=== PATIENT | female | born 1995 | race Caucasian/White ===

== ENCOUNTER 2017-11-28 21:46 | Emergency (ER) | payer OTHER ==
--- NOTE | 2017-11-28 22:16 | RAD ---
RIGHT INDEX FINGER THREE VIEWS: 11/28/17 HISTORY: Right index finger pain. FINDINGS/IMPRESSION: No fracture, dislocation or bony destruction is seen. POS: [facility]
[2017-11-28] MEDS ORDERED: Ketorolac Tromethamine 30 MG/ML VIAL ONE (22:20)
[2017-11-28 22:29] LABS: #Basophils 0.2 thou/uL (0.0-0.2); #Eosinphils 0.2 thou/uL (0.0-0.7); #Lymphocytes 4.1 thou/uL (1.20-3.40); #Monocytes 1.2 thou/uL (0.11-0.59); #Neutrophils 6.2 thou/uL (1.40-6.50); %Basophils 1.9 % (0.0-1.0); %Eosinophils 1.7 % (0.0-10.0); %Lymphocytes 34.2 % (21.0-51.0); %Monocytes 10.4 % (0.0-10.0); %Neutrophils 51.8 % (42.0-75.0); Hemoglobin 13.8 g/dL (12.0-16.0); Mean Corpuscular HGB CONC 35.4 g/dL (32.0-36.0); Mean Corpuscular Hemoglobin 30.5 pg (27.0-31.0); Mean Corpuscular Volume 86.3 fl (81.0-99.0); Mean Platelet Volume 7.7 fL (7.4-10.4); Platelet Count 241 thou/uL (130-400); RBC Distribution Width 9.9 % (11.5-14.5); Red Blood Cell (RBC) Count 4.54 mill/uL (4.20-5.40); White Blood Cell (WBC) Count 11.9 thou/uL (4.8-10.8)
[2017-11-28 22:42] LABS: Anion Gap 13 mmol/L (10-20); BUN (Urea Nitrogen) 17 mg/dL (7.0-18.7); Calc. Creatinine Clearance 0 mL/min (70-130); Calcium 9.8 mg/dL (7.8-10.44); Carbon Dioxide 26 mmol/L (22-29); Chloride 106 mmol/L (98-107); Estimated GFR-MDRD 74; Glucose 82 mg/dL (70-105); Potassium 3.7 mmol/L (3.5-5.1); Sodium 141 mmol/L (136-145)
== END 2017-11-28 22:55 | disposition home or self-care (01) ==
LOC: SCSER 21:46
DX: M79.89 Other specified soft tissue disorders (principal); F41.9 Anxiety disorder, unspecified; F32.9 Major depressive disorder, single episode, unspecified; F17.210 Nicotine dependence, cigarettes, uncomplicated; M35.7 Hypermobility syndrome; Z79.899 Other long term (current) drug therapy
CPT/HCPCS: 80048; 85025; 85652; 86140; 96374; J1885

== ENCOUNTER 2017-11-29 16:54 | Inpatient (IN) | payer OTHER ==
[~2017-11-29 16:54] MED LIST: Glycopyrrolate 0.2 MG/ML 5 ML SYRINGE ONE; Ketorolac Tromethamine 30 MG/ML VIAL ONE; Lidocaine 1% PF 5 ML VIAL ONE; Ondansetron HCl/PF 4 MG/2 ML Vial ONE; PHENYLEPHRINE-NS 100 MCG/ML 10 ML SYRINGE ONE; PROPOFOL 200 MG/20 ML VIAL ONE
[2017-11-29 18:30] LABS: BHCG - Serum Negative (NEGATIVE); Pregs Control Background? CLEAR/WHITE (CLR/WHITE); Pregs Control Bar Appear? YES (CONTROL BAR)
[2017-11-29] MEDS ORDERED: Gentamicin 80 MG/2 ML VIAL ONE (18:35)
[2017-11-29] MEDS ORDERED: Bacitracin Zinc Ointment 30 gm TUBE ONE (18:35)
[2017-11-29] MEDS ORDERED: Bupivacaine PF 0.5% 30 ML VIAL ONE (18:35)
[2017-11-29] MEDS ORDERED: Midazolam HCl 2 mg/2 ml Vial ONE (18:54)
[2017-11-29] MEDS ORDERED: Fentanyl 100 MCG/2 ML VIAL ONE ×4 (19:14→21:31)
[2017-11-29] MEDS ORDERED: Ketorolac Tromethamine 30 MG/ML VIAL ONE (20:44)
[2017-11-29] MEDS ORDERED: Ondansetron HCl/PF 4 MG/2 ML Vial IVP PRN (20:47)
[2017-11-29] MEDS ORDERED: Promethazine HCl 25 MG/ML VIAL IM PRN ×2 (20:47→22:26)
[2017-11-29] MEDS ORDERED: Promethazine HCl 25 MG/ML VIAL SLOW IVP PRN (20:47)
[2017-11-29 22:09] VITALS: BMI 21.2
[2017-11-29] MEDS ORDERED: Ketorolac Tromethamine 30 MG/ML VIAL IM SCH (22:30)
[2017-11-29] MEDS: Vancomycin HCl 750 MG in Sodium Chloride 0.9% 250 ML 250 ML IVPB SCH (22:45)
[2017-11-30] MEDS: Dextrose 5 % And 0.9 % NaCl 1,000 ML IV SCH ×2 (02:16→19:25)
[2017-11-30] MEDS: Gentamicin Sulfate 80 MG in Premix Bag 1 BAG IVPB SCH ×3 (05:15→21:25)
[2017-11-30] MEDS: Ketorolac Tromethamine 30 MG/ML VIAL IVP SCH ×3 (05:15→21:25)
[2017-11-30 05:44] LABS: #Basophils 0.1 thou/uL (0.0-0.2); #Eosinphils 0.3 thou/uL (0.0-0.7); #Lymphocytes 3.6 thou/uL (1.20-3.40); #Monocytes 0.8 thou/uL (0.11-0.59); #Neutrophils 4.1 thou/uL (1.40-6.50); %Basophils 0.7 % (0.0-1.0); %Monocytes 9.2 % (0.0-10.0); %Neutrophils 46.1 % (42.0-75.0); Hemoglobin 11.7 g/dL (12.0-16.0); Mean Corpuscular HGB CONC 33.7 g/dL (32.0-36.0); Mean Corpuscular Hemoglobin 31.3 pg (27.0-31.0); Mean Corpuscular Volume 92.8 fl (81.0-99.0); Mean Platelet Volume 7.5 fL (7.4-10.4); Platelet Count 155 thou/uL (130-400); RBC Distribution Width 10.6 % (11.5-14.5); Red Blood Cell (RBC) Count 3.74 mill/uL (4.20-5.40); White Blood Cell (WBC) Count 8.9 thou/uL (4.8-10.8)
[2017-11-30] MEDS ORDERED: [UNRECOGNIZED DRUG - OTHER] SLOW IVP SCH (06:00)
[2017-11-30] MEDS ORDERED: STERILE WATER SLOW IVP SCH (06:00)
[2017-11-30] MEDS ORDERED: SULBACTAM SLOW IVP SCH (06:00)
[2017-11-30] MEDS ORDERED: AMPICILLIN SLOW IVP SCH (06:00)
--- NOTE | 2017-11-30 07:24 | OP ---
DATE: 11/29/2017 PREOPERATIVE DIAGNOSES: Right index finger proximal phalangeal abscess to right index finger, flexor tendon sheath abscess. POSTOPERATIVE DIAGNOSES: Right index finger proximal phalangeal abscess to right index finger flexor tendon sheath abscess. FINDINGS: A very thick yellow fluid in the 2 areas as listed above, which is the approximately half of flexor tendon sheath, is placed between 3 and the A1 chauncey and the proximal phalangeal joint prop er. CULTURES SENT: 1. Viral culture to include HIV, influenza, other viruses from the proximal phalangeal joint and the tendon sheath. 2. Chocolate agar, rule out gonorrhea from both the joint and the tendon sheath and 2 cultures from the joint, aerobic, anaerobic, fungal, and mycobacterial, and 2 cultures from the tendon sheath, aero bic, anaerobic, fungal, and mycobacterial. PROCEDURES: 1. Arthrotomy with drainage of abscess, possible and/or joint. 2. Open tendon sheath irrigation and drainage. TOURNIQUET TIME: 20 minutes. BLOOD LOSS: Less than 10 mL. All wounds dressed left open with normal saline, soaked gauze and a sm all amount of packing. INDICATION: The patient reports that 5 days ago, she had a puncture wound just proximal to the dista l interphalangeal joint over the central portion of her index finger. Four days later, which was yes terday, she began to notice edema, swelling in the area. The patient also presented to the office to day with a white blood cell count of 11,000. She was counselled by Dr. Kinsey at bedside prior to procedure that she would probably have an infection, it may be early, and we will need to rule out un usual infectious such as a viral type and also possible gonorrhea. The patient is sexually active. DESCRIPTION OF PROCEDURE: After successful general LMA technique, the limb was prepped and draped. We then had a time out performed. Incision was outlined 1.5 cm level of A1 chauncey, 1.5 cm over the m iddle phalanx between the A2 and A3 chauncey and then one just between the A3 chauncey and A4 chauncey, the se were carried to skin and subcutaneous tissue. We then noticed the thick mucopurulent, but not yet purulent, yellow, darkened material fluid at the middle incision over the middle phalanx greater jimenez n the other two. We then took the appropriate cultures as listed above and sent it to the lab. This included a chocolate agar. Then, we irrigated this with 25 mL of tendon sheath irrigation first at the proximal incision approxi mately A1 chauncey, secondly at the middle incision. At all sites, there was a flow out of the incisio n open and distal to where the catheter was placed. A total of 50 mL was placed through the tendon s kelly and the tendon. We then turned attention to the dorsal aspect of the proximal phalangeal joint . Here, made a zigzag incision, slightly more radial than ulnar, and carried through the skin and rodriguez bcutaneous tissue, and then we opened the junction between the central flip and the intrinsics in the joint and we immediately saw another thick dark mucopurulent, this time almost gelatinous material e scaped, and we cultured this in the same way I cultured the fluid from the tendon sheath. Here, we u sed 200 mL of irrigation with a large 20 mL syringe and a 20-gauge catheter underneath the tendon in the joint to irrigate this area. We released the tourniquet and obtained hemostasis. The wounds wer e all dressed open, normal saline gauze soaked inside each wound, bulky dressing for the finger, and the patient left the operating room without evidence of anesthetic or operative complication. She wi ll be admitted for IV antibiotics and I told she and her relative and significant other that if this show any evidence at all of infection, we would leave her in hospital for at least 24 hours of IV ant ibiotics pending normal white blood cell count and pain control. We will also order tests in case th is is an unusual presentation of inflammatory tenosynovitis and arthritis.
[2017-11-30] MEDS: Vancomycin HCl 750 MG in Sodium Chloride 0.9% 250 ML 250 ML IVPB SCH ×2 (11:35→22:05)
[2017-11-30] MEDS: Fentanyl 100 MCG/2 ML VIAL SLOW IVP PRN ×4 (13:03→22:03)
[2017-11-30] MEDS ORDERED: Ondansetron HCl/PF 4 MG/2 ML Vial SLOW IVP PRN (15:17)
--- NOTE | 2017-11-30 18:10 | PDOC.PN ---
- Subjective Encounter Start Date: 11/30/17 Encounter Start Time: 17:50 Pt seen for management of medical comorbidities, including abdominal distention. Pt reports abdominal distention which started today. Not passing flatus. Reports vomiting once earlier today. - Objective MAR Reviewed: Yes Vital Signs & Weight: Vital Signs (12 hours) Temp Pulse Resp BP Pulse Ox 11/30/17 15:47 98.0 F 64 16 128/76 96 11/30/17 12:02 97.7 F 60 15 136/74 97 11/30/17 08:11 98.1 F 82 14 113/62 99 Weight Weight 120 lb Result Diagrams: 11/30/17 04:48 Phys Exam - Physical Examination Constitutional: NAD HEENT: moist MMs Neck: supple Respiratory: clear to auscultation bilateral Cardiovascular: RRR Gastrointestinal: soft bowel sounds absent Neurological: moves all 4 limbs Psychiatric: normal affect Dx/Plan (1) Abdominal distention Code(s): R14.0 - ABDOMINAL DISTENSION (GASEOUS) Status: Acute (2) Chronic pain Code(s): G89.29 - OTHER CHRONIC PAIN Status: Chronic (3) Gastroparesis Code(s): K31.84 - GASTROPARESIS Status: Chronic (4) Fibromyalgia Status: Chronic - Plan * . Pt had surgery under general sedation today. Followup on abdominal x-rays. Pain management per surgical service. Review of Systems - Review of Systems Respiratory: negative: Cough, Dry, Shortness of Breath, Hemoptysis, SOB with Excertion, Pleuritic Pain, Sputum, Wheezing Cardiovascular: negative: chest pain, palpitations, orthopnea, paroxysmal nocturnal dyspnea, edema, light headedness Gastrointestinal: Nausea, Vomiting, Constipation, Other (abdo distention) - Medications/Allergies Allergies/Adverse Reactions: Allergies Allergy/AdvReac Type Severity Reaction Status Date / Time amitriptyline Allergy Verified 04/01/17 17:10 codeine phosphate Allergy Verified 04/01/17 17:10 [From Tylenol-Codeine #3] duloxetine HCl Allergy Verified 04/01/17 17:10 [From Cymbalta] hydrocodone Allergy Verified 04/01/17 17:10 morphine Allergy Verified 04/01/17 17:10 Penicillins Allergy Verified 04/01/17 17:10 Medications: Current Medications Butorphanol Tartrate (Stadol) 2 mg SLOW IVP Q8H PRN PRN Reason: Pain Fentanyl (Sublimaze) 25 mcg SLOW IVP Q2H PRN PRN Reason: Moderate Pain (4-6) Last Admin: 11/30/17 15:58 Dose: 25 mcg Vancomycin HCl 750 mg/ Sodium (Chloride) 250 mls @ 250 mls/hr IVPB 1100,2300 [facility] Last Admin: 11/30/17 11:35 Dose: 250 mls Gentamicin Sulfate 80 mg/ (Device) 100 mls @ 200 mls/hr IVPB Q8HR [facility] Last Admin: 11/30/17 14:39 Dose: 100 mls Dextrose/Sodium Chloride (D5 0.9% Ns) 1,000 mls @ 100 mls/hr IV .Q10H [facility] Last Admin: 11/30/17 02:16 Dose: 1,000 mls Ketorolac Tromethamine (Toradol) 30 mg IVP Q8HR [facility] Stop: 12/05/17 06:01 Last Admin: 11/30/17 14:29 Dose: 30 mg Meperidine HCl (Demerol) 25 mg IM Q4H PRN PRN Reason: Severe Pain (7-10) Last Admin: 11/30/17 10:18 Dose: 25 mg Meperidine HCl (Demerol) 50 mg PO Q4H PRN PRN Reason: Pain Last Admin: 11/30/17 14:27 Dose: 50 mg Ondansetron HCl (Zofran) 4 mg SLOW IVP Q6H PRN PRN Reason: Nausea/Vomiting Promethazine HCl (Phenergan) 25 mg IM Q4H PRN PRN Reason: Severe Pain (7-10) Last Admin: 11/30/17 10:18 Dose: 25 mg Sodium Chloride (Flush - Normal Saline) 10 ml IVF Q12HR [facility] Last Admin: 11/30/17 09:20 Dose: Not Given Sodium Chloride (Flush - Normal Saline) 10 ml IVF PRN PRN PRN Reason: Saline Flush
--- NOTE | 2017-11-30 18:52 | RAD ---
ABDOMEN TWO VIEWS 11/30/17 HISTORY: Abdominal distention. FINDINGS/IMPRESSION: No free air or differential fluid levels are seen. the bowel gas pattern is unremarkable. There is fe bradford material in the colon. POS: [facility]
[2017-11-30 19:14] LABS: ALT (SGPT) 10 U/L (8-55); AST (SGOT) 19 U/L (5-34); Albumin 3.9 g/dL (3.5-5.0); Alkaline Phosphatase 34 U/L (40-150); Bilirubin, Direct 0.4 mg/dL (0.1-0.3); Bilirubin, Total 0.7 mg/dL (0.2-1.2); Lipase 28 U/L (8-78); Protein, Total 5.7 g/dL (6.0-8.3)
[2017-11-30] MEDS ORDERED: DOMPERIDONE 20 MG PO SCH (21:00)
[2017-11-30] MEDS ORDERED: lamoTRIgine 100 MG TAB PO SCH (21:00)
[2017-11-30] MEDS: Sodium Chloride 0.9% 1,000 ML IV SCH (22:12)
[2017-12-01] MEDS: Fentanyl 100 MCG/2 ML VIAL SLOW IVP PRN ×5 (03:23→18:59)
[2017-12-01] MEDS: Ketorolac Tromethamine 30 MG/ML VIAL IVP SCH ×2 (05:04→14:39)
[2017-12-01] MEDS: Gentamicin Sulfate 80 MG in Premix Bag 1 BAG IVPB SCH ×2 (05:04→14:45)
[2017-12-01] MEDS: Multivit, Therapeutic 1 TAB PO SCH ×2 (08:18→08:21)
[2017-12-01] MEDS: Sodium Chloride 0.9% 1,000 ML IV SCH (08:24)
[2017-12-01] MEDS ORDERED: Polyethylene Glycol 3350 17 GM Packet PO SCH (09:00)
[2017-12-01 09:19] LABS: Antinuclear AB Negative (Negative)
[2017-12-01] MEDS ORDERED: Bisacodyl 10 MG SUPP PR PRN (09:45)
[2017-12-01] MEDS ORDERED: Bisacodyl 5 MG TAB PO PRN (09:45)
[2017-12-01 10:10] LABS: Vancomycin, Trough 1.9 ug/mL
[2017-12-01] MEDS: Vancomycin HCl 750 MG in Sodium Chloride 0.9% 250 ML 250 ML IVPB SCH (11:08)
--- NOTE | 2017-12-01 11:49 | PDOC.PN ---
- Subjective Encounter Start Date: 12/01/17 Encounter Start Time: 08:20 Pt seen for followup re: abdo distention. Passed flatus. Constipated. - Objective MAR Reviewed: Yes Vital Signs & Weight: Vital Signs (12 hours) Temp Pulse Resp BP Pulse Ox 12/01/17 08:15 98.2 F 64 14 99 12/01/17 07:42 98.2 F 64 14 110/62 99 12/01/17 04:19 97.6 F 66 16 106/53 L 97 12/01/17 00:31 97.4 F L 62 15 108/57 L 99 Weight Weight 120 lb I&O: 11/30/17 12/01/17 12/02/17 06:59 06:59 06:59 Intake Total 1202 Balance 1202 Result Diagrams: 11/30/17 04:48 Phys Exam - Physical Examination Constitutional: NAD HEENT: moist MMs Neck: supple Respiratory: clear to auscultation bilateral Cardiovascular: RRR Gastrointestinal: soft, non-tender, positive bowel sounds Neurological: moves all 4 limbs Psychiatric: normal affect Dx/Plan (1) Abdominal distention Code(s): R14.0 - ABDOMINAL DISTENSION (GASEOUS) Status: Acute (2) Chronic pain Code(s): G89.29 - OTHER CHRONIC PAIN Status: Chronic (3) Gastroparesis Code(s): K31.84 - GASTROPARESIS Status: Chronic (4) Fibromyalgia Status: Chronic - Plan * . Miralax trial. Dulcolax PRN. Pt tolerating diet. Review of Systems - Review of Systems Respiratory: negative: Cough, Dry, Shortness of Breath, Hemoptysis, SOB with Excertion, Pleuritic Pain, Sputum, Wheezing Cardiovascular: negative: chest pain, palpitations, orthopnea, paroxysmal nocturnal dyspnea, edema, light headedness Gastrointestinal: Constipation. negative: Nausea, Vomiting, Abdominal Pain, Diarrhea, Melena, Hematochezia - Medications/Allergies Allergies/Adverse Reactions: Allergies Allergy/AdvReac Type Severity Reaction Status Date / Time amitriptyline Allergy Verified 04/01/17 17:10 codeine phosphate Allergy Verified 04/01/17 17:10 [From Tylenol-Codeine #3] duloxetine HCl Allergy Verified 04/01/17 17:10 [From Cymbalta] hydrocodone Allergy Verified 04/01/17 17:10 morphine Allergy Verified 04/01/17 17:10 Penicillins Allergy Verified 04/01/17 17:10 Medications: Current Medications Bisacodyl (Dulcolax) 10 mg PO DAILYPRN PRN PRN Reason: Constipation Last Admin: 12/01/17 11:12 Dose: 10 mg Bisacodyl (Dulcolax) 10 mg LA DAILYPRN PRN PRN Reason: Constipation Butorphanol Tartrate (Stadol) 2 mg SLOW IVP Q8H PRN PRN Reason: Pain Fentanyl (Sublimaze) 25 mcg SLOW IVP Q2H PRN PRN Reason: Moderate Pain (4-6) Last Admin: 12/01/17 08:18 Dose: 25 mcg Vancomycin HCl 750 mg/ Sodium (Chloride) 250 mls @ 250 mls/hr IVPB 1100,2300 [facility] Last Admin: 12/01/17 11:08 Dose: 250 mls Gentamicin Sulfate 80 mg/ (Device) 100 mls @ 200 mls/hr IVPB Q8HR [facility] Last Admin: 12/01/17 05:04 Dose: 100 mls Sodium Chloride (Normal Saline 0.9%) 1,000 mls @ 100 mls/hr IV .Q10H [facility] Last Admin: 12/01/17 08:24 Dose: Not Given Ketorolac Tromethamine (Toradol) 30 mg IVP Q8HR [facility] Stop: 12/05/17 06:01 Last Admin: 12/01/17 05:04 Dose: 30 mg Lamotrigine (Lamictal) 100 mg PO HS [facility] Last Admin: 11/30/17 20:47 Dose: 100 mg Meperidine HCl (Demerol) 25 mg IM Q4H PRN PRN Reason: Severe Pain (7-10) Last Admin: 11/30/17 10:18 Dose: 25 mg Meperidine HCl (Demerol) 50 mg PO Q4H PRN PRN Reason: Pain Last Admin: 12/01/17 09:38 Dose: 50 mg Multivitamins (Theragran) 1 tab PO DAILY [facility] Last Admin: 12/01/17 08:21 Dose: Not Given Non-Formulary Medication (Domperidone) 20 mg PO QID [facility] Ondansetron HCl (Zofran) 4 mg SLOW IVP Q6H PRN PRN Reason: Nausea/Vomiting Polyethylene Glycol (Miralax) 17 gm PO DAILY [facility] Last Admin: 12/01/17 10:00 Dose: 17 gm Promethazine HCl (Phenergan) 25 mg IM Q4H PRN PRN Reason: Severe Pain (7-10) Last Admin: 11/30/17 10:18 Dose: 25 mg Sodium Chloride (Flush - Normal Saline) 10 ml IVF Q12HR [facility] Last Admin: 12/01/17 08:24 Dose: Not Given Sodium Chloride (Flush - Normal Saline) 10 ml IVF PRN PRN PRN Reason: Saline Flush
[2017-12-01 16:26] VITALS: BP 105/60; TEMP 98.1
[2017-12-02 10:13] LABS: HIV-1 Quantitative, RNA PCR <20 copies/mL (.)
== END 2017-12-01 20:03 | disposition home or self-care (01) | DRG 501 ==
LOC: SDC 16:54 → OBSVTOIN 21:29 → SURG B 21:29
PROVIDERS: ADMIT Orthopaedic Surgery Hand Surgery; ATTEND Orthopaedic Surgery Hand Surgery
PROC: 0J9J0ZX Drainage of Right Hand Subcutaneous Tissue and Fascia, Open Approach, Diagnostic (ICD-10-PCS; principal; 2017-11-29)
PROC: 0L970ZX Drainage of Right Hand Tendon, Open Approach, Diagnostic (ICD-10-PCS; 2017-11-29)
PROC: 0R9W0ZX Drainage of Right Finger Phalangeal Joint, Open Approach, Diagnostic (ICD-10-PCS; 2017-11-29)
DX: M65.841 Other synovitis and tenosynovitis, right hand (principal); L02.511 Cutaneous abscess of right hand; K31.84 Gastroparesis; K56.7 Ileus, unspecified; F31.81 Bipolar II disorder; M79.7 Fibromyalgia; G89.29 Other chronic pain
CPT/HCPCS: 36415; 74019; 80048; 80076; 80202; 82150; 83690; 84703; 85025; 85652; 86038; 86140; 86430; 87070; 87081; 87205; 87536; 96374; A4216; J1580; J1885; J2001; J2175; J2250; J2405; J2550; J2704; J3010; J3370; J7042; J7050; S0020

== ENCOUNTER 2017-12-06 12:24 | Day surgery (SDC) | payer OTHER ==
[2017-12-06] MEDS ORDERED: Sodium Chloride 0.9% 10 ML ONE (13:34)
[2017-12-06] MEDS ORDERED: Bupivacaine PF 0.5% 30 ML VIAL ONE (13:34)
[2017-12-06] MEDS ORDERED: Bacitracin Zinc Ointment 30 gm TUBE ONE (13:34)
[2017-12-06] MEDS ORDERED: Thrombin 5000 UNITS/5 ML VIAL ONE (13:34)
[2017-12-06] MEDS ORDERED: Lidocaine 1% (PF) 30 ML VIAL ONE (13:34)
[2017-12-06] MEDS ORDERED: Fentanyl 100 MCG/2 ML VIAL ONE (13:35)
[2017-12-06] MEDS ORDERED: Ondansetron HCl/PF 4 MG/2 ML Vial ONE ×3 (13:36→14:37)
[2017-12-06] MEDS ORDERED: Midazolam HCl 2 mg/2 ml Vial ONE (14:12)
[2017-12-06] MEDS ORDERED: Dexamethasone 20 MG/5 ML VIAL ONE (14:37)
[2017-12-06] MEDS ORDERED: Succinylcholine Chloride 20 MG/ML 10 ml SYRINGE FS ONE (14:37)
[2017-12-06] MEDS ORDERED: Ketorolac Tromethamine 30 MG/ML VIAL ONE ×2 (14:37→15:21)
[2017-12-06] MEDS ORDERED: Propofol 200 MG/20 ML VIAL ONE (14:37)
[2017-12-06] MEDS ORDERED: Lidocaine 1% PF 5 ML VIAL ONE (14:37)
[2017-12-06] MEDS ORDERED: Metoclopramide HCl 10 MG/2 ML VIAL ONE (14:37)
[2017-12-06] MEDS ORDERED: ePHEDrine/0.9% NaCl/PF SYRINGE 50 mg/10 ml ONE (14:37)
--- NOTE | 2017-12-07 02:11 | OP ---
DATE OF PROCEDURE: 12/06/2017 PREOPERATIVE DIAGNOSIS: Right index finger multiple open wounds totalling approximately 7 cm includi ng the palm. POSTOPERATIVE DIAGNOSIS: Right index finger multiple open wounds totalling approximately 7 cm includ ing the palm. FINDINGS: No gross infection or necrosis. PROCEDURE PERFORMED: 1. Debridement of wound, intermediate layer, technique. A. Scissor techniue. B. Use of tenotomy scissors, Adson's, and a curette. 2. No gross infection found. No necrosis. Depth was down to the fascia fat including dermis and ep idermis only. 3. Wound closure, [id number]. INDICATIONS: The patient returns now 6 days after incision and drainage of what proved to be either a sterile abscess or inflammatory problem involving tendon sheath in her joint. Her pain greatly dec reased. No gross infection, so wound closure was indicated. ANESTHESIA: General LMA technique augmented by 50 mL of 0.5% Marcaine metacarpophalangeal block. No epinephrine. DESCRIPTION OF PROCEDURE: After successful general LMA technique, the limb was prepped and draped. She was given Toradol. The wound was inspected, time out was done appropriately. We then used the d ebridement technique as listed above. We irrigated the wounds, each of the 4 wounds with 250 mL of normal saline with antibiotics inside. We closed the wound in individual layers with interrupted suture. No gap formation seen with full ex tension and passive flexion. She had excellent circulation and color. Bulky dressing was applied wi th a finger tube gauze, well padded, and she left the operating room without evidence anesthetic or o perative complication.
== END 2017-12-06 16:40 | disposition home or self-care (01) ==
LOC: SDC 12:24
PROVIDERS: ATTEND Orthopaedic Surgery Hand Surgery
PROC: 0JBJ0ZZ Excision of Right Hand Subcutaneous Tissue and Fascia, Open Approach (ICD-10-PCS; principal; 2017-12-06)
DX: S61.200A Unspecified open wound of right index finger without damage to nail, initial encounter (principal); S61.401A Unspecified open wound of right hand, initial encounter; Z88.0 Allergy status to penicillin; Z88.5 Allergy status to narcotic agent; Z88.8 Allergy status to other drugs, medicaments and biological substances
CPT/HCPCS: A4216; J1100; J1885; J2001; J2250; J2405; J2704; J2765; J3010; J3370; J3490; S0020

== ENCOUNTER 2018-11-15 12:03 | Emergency (ER) | payer OTHER ==
[2018-11-15] MEDS ORDERED: Ondansetron PF 4 MG/2 ML Vial ONE ×2 (12:20→13:11)
[2018-11-15 12:36] LABS: #Eosinphils 0.1 thou/uL (0.0-0.7); #Lymphocytes 1.2 thou/uL (1.20-3.40); #Monocytes 0.9 thou/uL (0.11-0.59); #Neutrophils 6.4 thou/uL (1.40-6.50); %Basophils 0.3 % (0.0-1.0); %Eosinophils 0.8 % (0.0-10.0); %Lymphocytes 14.3 % (21.0-51.0); %Monocytes 10.6 % (0.0-10.0); %Neutrophils 74.1 % (42.0-75.0); Mean Corpuscular HGB CONC 33.9 g/dL (32.0-36.0); Mean Corpuscular Hemoglobin 30.3 pg (27.0-31.0); Mean Corpuscular Volume 89.2 fL (78.0-98.0); Mean Platelet Volume 7.3 fL (7.4-10.4); Platelet Count 275 thou/uL (130-400); RBC Distribution Width 10.4 % (11.5-14.5); White Blood Cell (WBC) Count 8.6 thou/uL (4.8-10.8)
[2018-11-15 13:02] LABS: BHCG - Serum Negative (NEGATIVE); Pregs Control Background? CLEAR/WHITE (CLR/WHITE); Pregs Control Bar Appear? YES (CONTROL BAR)
[2018-11-15 13:12] LABS: ALT (SGPT) 13 U/L (8-55); AST (SGOT) 18 U/L (5-34); Albumin 4.9 g/dL (3.5-5.0); Alkaline Phosphatase 54 U/L (40-150); Anion Gap 14 mmol/L (10-20); BUN (Urea Nitrogen) 18 mg/dL (7.0-18.7); Bilirubin, Total 0.8 mg/dL (0.2-1.2); Calc. Creatinine Clearance 0 mL/min (70-130); Calcium 9.7 mg/dL (7.8-10.44); Carbon Dioxide 25 mmol/L (22-29); Chloride 101 mmol/L (98-107); Estimated GFR-MDRD 67; Globulin 2.9 g/dL (2.4-3.5); Glucose 106 mg/dL (70-105); Lipase 13 U/L (8-78); Potassium 3.9 mmol/L (3.5-5.1); Protein, Total 7.8 g/dL (6.0-8.3); Sodium 136 mmol/L (136-145)
--- NOTE | 2018-11-15 14:55 | ULT ---
RIGHT UPPER QUADRANT ULTRASOUND: Date: 11-15-18 Provided Clinical History: Abdominal pain. FINDINGS: The visualized portions of the pancreas and IVC appear normal. Liver demonstrates no mass or intrahep atic biliary ductal dilatation. The common duct is not dilated. Gallbladder demonstrates no stones, w all thickening, or pericholecystic fluid. Right kidney demonstrates no hydronephrosis or mass. IMPRESSION: Unremarkable right upper quadrant ultrasound. POS: [facility]
[2018-11-15] MEDS ORDERED: Mag-Al 1200 mg/1200 mg/30 ML UDCUP ONE (14:56)
[2018-11-15] MEDS ORDERED: Lidocaine Viscous Sol 2% 15 ml UD Cup ONE (14:56)
[2018-11-15 15:32] LABS: Bilirubin Small (Negative); Blood, Urine Small (Negative); Clarity CLEAR (Clear); Glucose, Urine (Dipstick) Negative (Negative); Leukocyte Trace (Negative); Nitrite Negative (Negative); Protein, Urine (Dipstick) Trace mg/dL (Neg-Trace); Specific Gravity, Urine 1.032 (1.002-1.036); Urobilinogen 0.2 mg/dL (0.2-1.0)
[2018-11-15 15:37] LABS: Bacteria/HPF None Seen HPF (None Seen); Pathc Cast-AUWi Flag 1.74 (0-2.49); RBC/HPF 0-3 HPF (0-3); WBC/HPF 0-3 HPF (0-3)
[2018-11-15 15:54] LABS: Hyaline Casts/LPF 0-3 HYALINE CAST LPF (0-3 Hyaline)
[2018-11-15] MEDS ORDERED: Ketorolac Tromethamine 30 MG/ML VIAL ONE (16:25)
== END 2018-11-15 16:01 | disposition home or self-care (01) ==
LOC: ERS 12:03
DX: R10.11 Right upper quadrant pain (principal); R19.7 Diarrhea, unspecified; R11.10 Vomiting, unspecified; F32.9 Major depressive disorder, single episode, unspecified; F17.210 Nicotine dependence, cigarettes, uncomplicated; F41.9 Anxiety disorder, unspecified
CPT/HCPCS: 76705; 80053; 81003; 81015; 83690; 84703; 85025; 96361; 96372; 96374; 96375; 96376; J1885; J2405

== ENCOUNTER 2018-12-15 01:57 | Emergency (ER) | payer OTHER ==
[2018-12-15] MEDS ORDERED: Ketorolac Tromethamine 30 MG/ML VIAL ONE (02:26)
[2018-12-15] MEDS ORDERED: Famotidine/PF 20 mg/2ml Vial ONE (02:26)
[2018-12-15] MEDS ORDERED: Ondansetron PF 4 MG/2 ML Vial ONE (02:26)
[2018-12-15 02:35] LABS: BHCG - Serum Negative (NEGATIVE); Pregs Control Background? CLEAR/WHITE (CLR/WHITE); Pregs Control Bar Appear? YES (CONTROL BAR)
[2018-12-15 02:36] LABS: #Basophils 0.1 thou/uL (0.0-0.2); #Eosinphils 0.2 thou/uL (0.0-0.7); #Lymphocytes 3.8 thou/uL (1.20-3.40); #Monocytes 0.2 thou/uL (0.11-0.59); #Neutrophils 15.3 thou/uL (1.40-6.50); %Basophils 0.7 % (0.0-1.0); %Eosinophils 1.1 % (0.0-10.0); %Lymphocytes 19.5 % (21.0-51.0); %Monocytes 1.2 % (0.0-10.0); %Neutrophils 77.5 % (42.0-75.0); Hemoglobin 15.8 g/dL (12.0-16.0); Mean Corpuscular HGB CONC 34.9 g/dL (32.0-36.0); Mean Corpuscular Hemoglobin 30.9 pg (27.0-31.0); Mean Corpuscular Volume 88.4 fL (78.0-98.0); Mean Platelet Volume 7.5 fL (7.4-10.4); Platelet Count 281 thou/uL (130-400); RBC Distribution Width 10.9 % (11.5-14.5); Red Blood Cell (RBC) Count 5.13 mill/uL (4.20-5.40); White Blood Cell (WBC) Count 19.7 thou/uL (4.8-10.8)
[2018-12-15 02:43] LABS: ALT (SGPT) 34 U/L (8-55); AST (SGOT) 69 U/L (5-34); Albumin 4.4 g/dL (3.5-5.0); Alkaline Phosphatase 46 U/L (40-150); Anion Gap 18 mmol/L (10-20); BUN (Urea Nitrogen) 17 mg/dL (7.0-18.7); Bilirubin, Total 0.5 mg/dL (0.2-1.2); Calc. Creatinine Clearance 0 mL/min (70-130); Calcium 9.6 mg/dL (7.8-10.44); Carbon Dioxide 25 mmol/L (22-29); Chloride 104 mmol/L (98-107); Estimated GFR-MDRD 64; Globulin 2.4 g/dL (2.4-3.5); Glucose 149 mg/dL (70-105); Lipase 36 U/L (8-78); Potassium 3.6 mmol/L (3.5-5.1); Protein, Total 6.8 g/dL (6.0-8.3); Sodium 143 mmol/L (136-145)
[2018-12-15] MEDS ORDERED: Acetaminophen 500 MG TAB ONE (03:00)
[2018-12-15] MEDS ORDERED: Dicyclomine 20 MG TAB ONE (03:54)
[2018-12-15] MEDS ORDERED: Mag-Al Plus 1200 MG/1200 MG/120 MG/30 ML UDCUP ONE (03:55)
[2018-12-15] MEDS ORDERED: Lidocaine Viscous Sol 2% 15 ml UD Cup ONE ×2 (03:55→03:56)
--- NOTE | 2018-12-15 09:06 | RAD ---
PORTABLE CHEST 1 VIEW: DATE: 12/15/2018. TIME: 2:49 a.m. HISTORY: Chest pain. FINDINGS: The heart size is normal. The lungs are expanded and clear. The bony thorax is unremarkable. IMPRESSION: Normal exam. POS: [facility]
--- NOTE | 2018-12-15 09:10 | ULT ---
PRELIMINARY REPORT/[facility]/EMERGENTY AFTER-HOURS PROCEDURE US Abdomen Limited, Right Upper Quadrant EXAM DATE/TIME: 12/15/2018 3:12 AM CLINICAL HISTORY: 23 years old, female; Pain; Other: Upper abd pain, n/v TECHNIQUE: Real-time ultrasound of the abdomen with image documentation. Examination was focused on the right up per quadrant. COMPARISON: No relevant prior studies available. FINDINGS: Liver: No acute findings. No mass. Gallbladder: Limited visualization. The gallbladder is contracted. Therefore difficult to evaluate. Positive Lewis's sign. Common bile duct: Unremarkable. Pancreas: Visualized pancreas is unremarkable. Right kidney: No acute findings. No mass. No hydronephrosis. IMPRESSION: The gallbladder is contracted. Positive Lewis's sign. No acute findings. Thank you for allowing us to participate in the care of your patient. Dictated and Authenticated by: Kingston Garcia MD 12/15/2018 4:15 AM Central Time ([place] & [place]) FINAL REPORT RIGHT UPPER QUADRANT ULTRASOUND: I agree with the preliminary report given by Dr. Garcia of [facility]. POS: [facility]
== END 2018-12-15 04:29 | disposition home or self-care (01) ==
LOC: SCSER 01:57
DX: R10.13 Epigastric pain (principal); R11.2 Nausea with vomiting, unspecified; R07.9 Chest pain, unspecified; F41.9 Anxiety disorder, unspecified; F32.9 Major depressive disorder, single episode, unspecified; F17.210 Nicotine dependence, cigarettes, uncomplicated
CPT/HCPCS: 71045; 76705; 80053; 83690; 83735; 84484; 84703; 85025; 86850; 86900; 86901; 93005; 96361; 96374; 96375; J1885; J2405; S0028

== ENCOUNTER 2019-06-06 19:40 | Emergency (ER) | payer OTHER ==
[2019-06-06] MEDS ORDERED: HYDROcodone/Acetaminophen 5/325 mg Tablet ONE (19:55)
[2019-06-06] MEDS ORDERED: diphenhydrAMINE 25 MG CAP ONE (19:55)
--- NOTE | 2019-06-06 20:07 | RAD ---
EXAM: XR Shoulder Rt 3 View STANDARD PROVIDED CLINICAL HISTORY: Pain FINDINGS: There is no evidence for fracture or other acute osseous abnormality. Alignment appears anatomic. Vesta nt spaces appear preserved. IMPRESSION: No evidence for an acute osseous abnormality. If there is persistent clinical concern, conservative m anagement and follow-up imaging advised.
== END 2019-06-06 20:26 | disposition home or self-care (01) ==
LOC: SCSER 19:40
DX: S49.91XA Unspecified injury of right shoulder and upper arm, initial encounter (principal); F31.9 Bipolar disorder, unspecified; K31.84 Gastroparesis; F17.210 Nicotine dependence, cigarettes, uncomplicated; Z79.899 Other long term (current) drug therapy; W17.89XA Other fall from one level to another, initial encounter
CPT/HCPCS: Q0163

== ENCOUNTER 2020-03-16 18:51 | Outpatient (CLI) | payer BC ==
--- NOTE | 2020-03-16 19:37 | RAD ---
PA AND LATERAL CHEST: Indication: Shortness of breath. Negative Covid test on Monday. Comparison: 12-15-18 FINDINGS: The lungs appear clear. No infiltrate identified. Heart and mediastinum appear normal. IMPRESSION: No evidence of acute infiltrate. POS: [facility]
== END 2020-03-16 18:52 | disposition home or self-care (01) ==
LOC: SCSRAD 18:51
PROVIDERS: ATTEND Family Medicine
DX: R06.02 Shortness of breath (principal)
CPT/HCPCS: 71046

== ENCOUNTER 2020-04-07 21:24 | Emergency (ER) | payer BC ==
[~2020-04-07 21:24] MED LIST changes: -Glycopyrrolate 0.2 MG/ML 5 ML SYRINGE ONE; +Iopamidol 370 76% 50 ML VIAL FS ONE; +Iopamidol-370 76% 500 ML 1 ML ONE; -Ketorolac Tromethamine 30 MG/ML VIAL ONE; -Lidocaine 1% PF 5 ML VIAL ONE; -Ondansetron HCl/PF 4 MG/2 ML Vial ONE; -PHENYLEPHRINE-NS 100 MCG/ML 10 ML SYRINGE ONE; -PROPOFOL 200 MG/20 ML VIAL ONE
[2020-04-07] MEDS ORDERED: Ketorolac Tromethamine 30 MG/ML VIAL ONE (22:30)
[2020-04-07 22:39] LABS: Bilirubin Negative (Negative); Blood, Urine Negative (Negative); Clarity Clear (Clear); Glucose, Urine (Dipstick) Normal (Negative); Leukocyte Negative Leu/uL (Negative); Nitrite Negative (Negative); Protein, Urine (Dipstick) Negative (Neg-Trace); Urobilinogen Normal mg/dL (Less than 2)
[2020-04-07 22:48] LABS: #Basophils 0.1 thou/uL (0.0-0.2); #Eosinphils 0.1 thou/uL (0.0-0.7); #Lymphocytes 2.6 thou/uL (1.20-3.40); #Monocytes 0.9 thou/uL (0.11-0.59); #Neutrophils 9.9 thou/uL (1.40-6.50); %Basophils 0.6 % (0.0-1.0); %Eosinophils 0.4 % (0.0-10.0); %Lymphocytes 19.4 % (21.0-51.0); %Monocytes 6.6 % (0.0-10.0); %Neutrophils 73.1 % (42.0-75.0); Hemoglobin 14.8 g/dL (12.0-16.0); Mean Corpuscular HGB CONC 33.1 g/dL (32.0-36.0); Mean Corpuscular Hemoglobin 30.7 pg (27.0-31.0); Mean Corpuscular Volume 92.6 fL (78.0-98.0); Mean Platelet Volume 7.9 fL (7.4-10.4); Platelet Count 247 thou/uL (130-400); RBC Distribution Width 11.1 % (11.5-14.5); Red Blood Cell (RBC) Count 4.83 mill/uL (4.20-5.40); White Blood Cell (WBC) Count 13.5 thou/uL (4.8-10.8)
[2020-04-07 22:56] LABS: BHCG - Serum Negative (NEGATIVE); Pregs Control Background? CLEAR/WHITE (CLR/WHITE); Pregs Control Bar Appear? YES (CONTROL BAR)
[2020-04-07 23:12] LABS: ALT (SGPT) 10 U/L (8-55); AST (SGOT) 16 U/L (5-34); Albumin 4.7 g/dL (3.5-5.0); Alkaline Phosphatase 43 U/L (40-110); Anion Gap 13 mmol/L (10-20); BUN (Urea Nitrogen) 14 mg/dL (7.0-18.7); Bilirubin, Total 0.5 mg/dL (0.2-1.2); Calc. Creatinine Clearance 0 mL/min (70-130); Calcium 9.5 mg/dL (7.8-10.44); Carbon Dioxide 28 mmol/L (22-29); Chloride 104 mmol/L (98-107); Estimated GFR-MDRD 79; Globulin 2.7 g/dL (2.4-3.5); Glucose 91 mg/dL (70-105); Potassium 3.5 mmol/L (3.5-5.1); Protein, Total 7.4 g/dL (6.0-8.3); Sodium 141 mmol/L (136-145)
[2020-04-08] MEDS ORDERED: Ondansetron PF 4 MG/2 ML Vial ONE (01:08)
--- NOTE | 2020-04-08 08:14 | CT ---
PRELIMINARY REPORT/[facility]/EMERGENCY AFTER HOURS PROCEDURE EXAM: CT Abdomen and Pelvis with Intravenous Contrast CLINICAL HISTORY: Pt presents for RLQ abd pain and vomiting starting this AM. Denies fever, diarrhea, or urinary sympto ms. Exacerbated by palpation and movement. Took ibuprofen [employer] with moderate improvement of pain. TECHNIQUE: Axial computed tomography images of the abdomen and pelvis with intravenous contrast. CONTRAST: With; ISOVUE & ISOVUE COMPARISON: CT\SR - CT ABDOMEN PELVIS W CON - 04/07/2017 11:42 AM CDT FINDINGS: LUNG BASES: No basilar airspace consolidation or pleural effusion. LIVER: Unremarkable. GALLBLADDER AND BILE DUCTS: Unremarkable. No calcified stone. No ductal dilation. PANCREAS: Unremarkable. SPLEEN: Unremarkable. ADRENAL GLANDS: Unremarkable. KIDNEYS, URETERS, AND BLADDER: Unremarkable. No hydronephrosis or nephrolithiasis. No ureteral or bladder calculi. STOMACH AND BOWEL: No obstruction. No wall thickening. No CT evidence of colitis or acute diverticulitis. APPENDIX: No CT evidence for appendicitis. The appendix is normal in diameter, and contrast tracks into the lumen. PERITONEUM: No free fluid. No free air. REPRODUCTIVE: There is a tampon in the vagina. VASCULATURE: No aortic aneurysm. BONES: No fracture or suspicious osseous abnormality. ABDOMINAL WALL AND SOFT TISSUES: Unremarkable. IMPRESSION: No acute intra-abdominal or pelvic abnormality. ELECTRONICALLY SIGNED BY: Akin Bundy MD April 08, 2020 12:50:50 AM CDT This report is intended for review by the ordering physician only, in accordance of law. If you recei ve this report in error, please call [facility] at [phone]. FINAL REPORT EMERGENT AFTER HOURS CT OF THE ABDOMEN AND PELVIS: FINDINGS/IMPRESSION: I agree with the findings and impression given in the preliminary report per [facility] physici an. No evidence of acute intraabdominal/pelvic abnormality. POS: [facility]
== END 2020-04-08 01:23 | disposition home or self-care (01) ==
LOC: ERS 21:24
DX: R10.31 Right lower quadrant pain (principal); R11.2 Nausea with vomiting, unspecified; F31.9 Bipolar disorder, unspecified; F17.210 Nicotine dependence, cigarettes, uncomplicated; Z79.899 Other long term (current) drug therapy
CPT/HCPCS: 74177; 80053; 81003; 84703; 85025; 96361; 96374; 96375; J1885; J2405; Q9967

== ENCOUNTER 2021-09-27 12:12 | Outpatient (CLI) | payer BC | END 2021-09-27 12:13 | disposition home or self-care (01) | LOC: BICRAD 12:12 | PROVIDERS: ATTEND Physician Assistant | DX: M54.50 Low back pain, unspecified (principal); M53.3 Sacrococcygeal disorders, not elsewhere classified | CPT/HCPCS: 72100; 72220 ==

== ENCOUNTER 2022-04-11 10:55 | Outpatient (CLI) | payer BC | END 2022-04-11 10:56 | disposition home or self-care (01) | LOC: DTY/OP 10:55 | PROVIDERS: ATTEND Physician Assistant Medical | DX: K31.84 Gastroparesis (principal); R63.4 Abnormal weight loss | CPT/HCPCS: 97802 ==

== ENCOUNTER 2023-02-15 11:05 | Outpatient (CLI) | payer BC | END 2023-02-15 11:06 | disposition home or self-care (01) | LOC: MRI 11:05 | PROVIDERS: ATTEND Podiatrist Foot & Ankle Surgery | DX: M72.2 Plantar fascial fibromatosis (principal) ==

== ENCOUNTER 2023-02-22 08:37 | Outpatient (CLI) | payer BC ==
[2023-02-22 09:10] LABS: BHCG - Serum Negative (NEGATIVE); Pregs Control Background? CLEAR/WHITE (CLR/WHITE); Pregs Control Bar Appear? YES (CONTROL BAR)
[2023-02-22] MEDS ORDERED: Iopamidol 300 61% 100 ML VIAL FS ONE (12:58)
== END 2023-02-22 08:38 | disposition home or self-care (01) ==
LOC: RAD 08:37
PROVIDERS: ATTEND Physician Assistant
DX: Z32.00 Encounter for pregnancy test, result unknown (principal); Z31.41 Encounter for fertility testing
CPT/HCPCS: 58340; 74740; 84703; Q9967